=== PATIENT | male | born 1990 | race Caucasian/White ===

== ENCOUNTER 2016-12-17 18:40 | Emergency (ER) | payer BC ==
[2016-12-17 18:45] VITALS: BP 151/87; PULSE 92; RESP 16; TEMP 98.4; O2SAT 97
[2016-12-17] MEDS ORDERED: IBUPROFEN 600 MG TAB PO ONE (19:17)
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
[2016-12-17] MEDS ORDERED: OXYCODONE/APAP 5/325MG PREPACK#4 BTL TAKEHOME ONE (21:25)
== END 2016-12-17 21:33 | disposition home or self-care (01) ==
DX: S52.124A Nondisplaced fracture of head of right radius, initial encounter for closed fracture (principal); V19.49XA Pedal cycle driver injured in collision with other motor vehicles in traffic accident, initial encounter; Y99.8 Other external cause status; Y93.55 Activity, bike riding
CPT/HCPCS: A4565